=== PATIENT | female | born 1980 | race Caucasian/White ===

== ENCOUNTER 2016-08-30 12:57 | Emergency (ER) | payer SELFPAY ==
[~2016-08-30] VITALS: Ht 152.4 cm; Wt 77.0 kg
[2016-08-30] MEDS ORDERED: SILVADENE1 % EX (13:54)
[2016-08-30 14:12] VITALS: BP 139/84
== END 2016-08-30 14:12 | disposition home or self-care (01) | DRG 935 ==
LOC: ED 12:57
PROC: 2W2EX4Z Dressing of Right Hand using Bandage (ICD-10-PCS; principal; 2016-08-30)
PROC: 2W2FX4Z Dressing of Left Hand using Bandage (ICD-10-PCS; 2016-08-30)
DX: T23.262A Burn of second degree of back of left hand, initial encounter (principal); T23.261A Burn of second degree of back of right hand, initial encounter; X12.XXXA Contact with other hot fluids, initial encounter; Y93.89 Activity, other specified; Y92.009 Unspecified place in unspecified non-institutional (private) residence as the place of occurrence of the external cause

== ENCOUNTER 2018-11-03 22:11 | Emergency (ER) | payer SELFPAY ==
[~2018-11-03] VITALS: Ht 152.4 cm; Wt 79.5 kg
[~2018-11-03 22:11] MED LIST: SILVADENE1 % EX
[2018-11-03] MEDS ORDERED: CLARITIN10 M2 PO (22:44)
[2018-11-03 23:37] LABS: HEMATOCRIT 39.3 % (37.0-47.0); HEMOGLOBIN 12.9 g/dl (12.0-16.0); IMMATURE GRANULOCYTES 0.4 % (0.0-5.0); MEAN CELL VOLUME 84.2 fL CALC (80.0-100.0); MEAN CORPUSCULAR HGB 27.6 pG CALC (26.0-32.0); MEAN CORPUSCULAR HGB CONC 32.8 g/L CALC (32.0-36.0); NEUT# 6.92 thou/uL (2.00-7.15); RED BLOOD COUNT 4.67 mill/uL (4.20-5.60); RED CELL DISTRI WIDTH 14.1 % (11.5-15.5)
[2018-11-03 23:41] LABS: ALBUMIN 4.5 g/dL (3.2-5.0); ALKALINE PHOSPHATASE 100 u/l (38-126); ANION GAP 14 (6-22 (CALC)); BILIRUBIN, TOTAL 0.3 mg/dL (0.0-1.4); BUN 10 mg/dL (7-17); BUN/CREATININE RATIO 16 (12-20 (CALC)); CARBON DIOXIDE 24 mmol/l (22-30); CHLORIDE 105 mmol/l (95-108); CREATININE 0.6 mg/dL (0.5-1.0); GFR > 60 ML/MIN (>=60 (CALC)); GFR FOR AFR.AMER. > 60 ML/MIN (>=60 (CALC)); POTASSIUM 3.3 mmol/l (3.5-5.1); SODIUM 140 mmol/l (137-146); TOTAL PROTEIN 8.1 g/dL (6.3-8.2)
[2018-11-03 23:44] LABS: SGOT/AST 49 u/l (14-36)
[2018-11-03 23:49] LABS: URINE BILIRUBIN - DIPSTICK NEGATIVE (NEGATIVE); URINE BLOOD DIPSTICK NEGATIVE (NEGATIVE); URINE COLOR YELLOW; URINE GLUCOSE - DIPSTICK NEGATIVE (NEGATIVE); URINE KETONE NEGATIVE (NEGATIVE); URINE LEUK ESTERASE NEGATIVE (NEGATIVE); URINE NITRITE - DIPSTICK NEGATIVE (Negative); URINE PH 6.5 (4.5-8.0); URINE PROTEIN - DIPSTICK NEGATIVE (NEG-TRACE); URINE SPECIFIC GRAVITY <=1.005; URINE UROBILINOGEN - DIPSTICK 0.2 E.U./dL (0.2)
[2018-11-03 23:52] LABS: MYOGLOBIN 21 ng/mL (0 - 62)
[2018-11-03 23:55] LABS: BARBITURATES NEGATIVE (NEGATIVE); COCAINE NEGATIVE (NEGATIVE); METHADONE NEGATIVE (NEGATIVE); OXCYCODONE NEGATIVE (NEGATIVE); TETRAHYDROCANNABIONOL NEGATIVE (NEGATIVE); TRICYLIC ANTIDEPRESSANTS NEGATIVE (NEGATIVE)
[2018-11-04 02:04] LABS: TSH, 3RD GENERATION 3.59 uIU/mL (0.47 - 4.68)
[2018-11-04 02:58] VITALS: BP 112/70
== END 2018-11-04 03:02 | disposition home or self-care (01) | DRG 310 ==
LOC: ED 22:11
PROVIDERS: Emergency Medicine
DX: R00.2 Palpitations (principal); F41.9 Anxiety disorder, unspecified; R94.6 Abnormal results of thyroid function studies

== ENCOUNTER 2019-10-26 | Emergency (ER) | payer BC ==
[~2019-10-26] MED LIST changes: +CLARITIN10 M2 PO
[2019-10-26] MEDS ORDERED: BIRTH CONTROL (07:11)
[2019-10-26] MEDS ORDERED: OTC SINUS MED (07:12)
[2019-10-26 07:28] LABS: HEMATOCRIT 42.7 % (37.0-47.0); HEMOGLOBIN 14.1 g/dl (12.0-16.0); IMMATURE GRANULOCYTES 0.3 % (0.0-5.0); MEAN CORPUSCULAR HGB 28.7 pG CALC (26.0-32.0); NEUT# 7.98 thou/uL (2.00-7.15); RED BLOOD COUNT 4.91 mill/uL (4.20-5.60); RED CELL DISTRI WIDTH 13.1 % (11.5-15.5)
[2019-10-26 07:58] LABS: URINE BILIRUBIN - DIPSTICK NEGATIVE (NEGATIVE); URINE BLOOD DIPSTICK SMALL (NEGATIVE); URINE COLOR YELLOW; URINE GLUCOSE - DIPSTICK NEGATIVE (NEGATIVE); URINE KETONE NEGATIVE (NEGATIVE); URINE LEUK ESTERASE NEGATIVE (NEGATIVE); URINE NITRITE - DIPSTICK NEGATIVE (Negative); URINE PROTEIN - DIPSTICK NEGATIVE (NEG-TRACE); URINE UROBILINOGEN - DIPSTICK 0.2 E.U./dL (0.2)
[2019-10-26 08:26] LABS: URINE SQUAMOUS EPITHELIAL CELL FEW EPI/hpf (0-FEW); URINE WBC 0-2 WBC/hpf (0-5)
[2019-10-26 08:27] LABS: URINE MUCUS FEW hpf (NONE-FEW)
[2019-10-26 08:28] LABS: ALBUMIN 4.3 g/dL (3.2-5.0); ALKALINE PHOSPHATASE 84 u/l (38-126); ANION GAP 10 (6-22 (CALC)); BILIRUBIN, TOTAL 0.3 mg/dL (0.0-1.4); BUN 10 mg/dL (7-17); BUN/CREATININE RATIO 18 (12-20 (CALC)); CARBON DIOXIDE 25 mmol/l (22-30); CHLORIDE 106 mmol/l (95-108); CREATININE 0.6 mg/dL (0.5-1.0); GFR > 60 ML/MIN (>=60 (CALC)); GFR FOR AFR.AMER. > 60 ML/MIN (>=60 (CALC)); LIPASE 98 u/l (23-300); SGOT/AST 47 u/l (14-36); SODIUM 137 mmol/l (137-146)
[2019-10-26] MEDS ORDERED: HYOSCYAMINE0.125 M3 PO (09:38)
[2019-10-26] MEDS ORDERED: ONDANSETRON4 MG PO (09:38)
== END 2019-10-26 09:53 | disposition home or self-care (01) | DRG 392 ==
PROVIDERS: Family Medicine
DX: R10.31 Right lower quadrant pain (principal); R31.9 Hematuria, unspecified
CPT/HCPCS: Q9967

== ENCOUNTER 2022-10-12 14:17 | Emergency (ER) | payer BC ==
[~2022-10-12] VITALS: Ht 154.9 cm; Wt 86.0 kg
[2022-10-12] VITALS (7 sets, daily range): BP systolic 101–150; BP diastolic 57–85
[~2022-10-12 14:17] MED LIST changes: +BIRTH CONTROL; +HYOSCYAMINE0.125 M3 PO; +ONDANSETRON4 MG PO; +OTC SINUS MED
[2022-10-12] MEDS ORDERED: EPIPEN 2-P0.3 MG/0.3 IM (18:03)
[2022-10-12] MEDS ORDERED: PREDNISONE50 MG PO (18:03)
[2022-10-12] MEDS ORDERED: ALL DAY10 MG PO (18:03)
== END 2022-10-12 20:45 | disposition home or self-care (01) | DRG 916 ==
LOC: ED 14:17
DX: T78.01XA Anaphylactic reaction due to peanuts, initial encounter (principal)

== ENCOUNTER 2024-06-23 14:53 | Emergency (ER) | payer BC ==
[~2024-06-23] VITALS: Ht 154.9 cm; Wt 77.2 kg
[2024-06-23] VITALS (21 sets, daily range): BP systolic 118–151; BP diastolic 71–95
[~2024-06-23 14:53] MED LIST changes: +ALL DAY10 MG PO; +EPIPEN 2-P0.3 MG/0.3 IM; +MELOXICAM7.5 MG PO; +ORPHENADRINE100 MG PO; +PREDNISONE50 MG PO
[2024-06-23] MEDS ORDERED: EPINEPHrine HCL 1 MG/ML AMP IM STA (15:27)
[2024-06-23] MEDS ORDERED: DiphenhydrAMINE HCL 50 MG/ML SDV IV ONE (15:30)
[2024-06-23] MEDS ORDERED: FAMOTIDINE 10MG/ML 2ML SDV IV ONE (15:30)
[2024-06-23] MEDS ORDERED: methylPREDNISolone SODIUM SUCC 125 MG/2 ML SDV IV ONE (15:30)
[2024-06-23] MEDS ORDERED: LACTATED RINGER'S 1,000 ML IV ONE (15:30)
[2024-06-23] MEDS ORDERED: ZYRTEC10 MG PO (15:38)
[2024-06-23] MEDS ORDERED: ROSUVASTATIN CAL5 MG PO (15:39)
[2024-06-23] MEDS ORDERED: DICLOFENAC SODI75 M1 PO (15:40)
[2024-06-23 15:51] LABS: BASO% 0.2 % (0-3); EOS% 0.9 % (0-8); IMMATURE GRANULOCYTES 0.1 % (0.0-5.0); LYMPH% 26.3 % (15-41); MEAN CELL VOLUME 84.9 fL CALC (80.0-100.0); MEAN CORPUSCULAR HGB 27.8 pG CALC (26.0-32.0); MEAN CORPUSCULAR HGB CONC 32.7 g/dL CAL (32.0-36.0); MONO% 8.9 % (2-13); NEUT# 5.16 thou/uL (2.00-7.15); NEUT% 63.6 % (42-76); RED BLOOD COUNT 4.25 mill/uL (4.20-5.60); RED CELL DISTRI WIDTH 13.3 % (11.5-15.5)
[2024-06-23 15:54] LABS: HEMATOCRIT 36.1 % (37.0-47.0); HEMOGLOBIN 11.8 g/dl (12.0-16.0)
[2024-06-23 16:09] LABS: ALBUMIN 4.6 g/dL (3.2-5.0); BILIRUBIN, TOTAL 0.6 mg/dL (0.02-1.3); CREATININE 0.7 mg/dL (0.5-1.0); TOTAL PROTEIN 7.5 g/dL (6.3-8.2)
[2024-06-23] MEDS ORDERED: PEPCID20 MG PO (19:41)
[2024-06-23] MEDS ORDERED: PREDNISONE20 MG PO (19:41)
== END 2024-06-23 20:33 | disposition home or self-care (01) | DRG 607 ==
LOC: ED 14:53
PROVIDERS: Nurse Practitioner
DX: L23.6 Allergic contact dermatitis due to food in contact with the skin (principal); R22.0 Localized swelling, mass and lump, head; R06.02 Shortness of breath; Z91.018 Allergy to other foods
CPT/HCPCS: J1200

== ENCOUNTER 2024-07-12 10:42 | Emergency (ER) | payer BC ==
[~2024-07-12] VITALS: Ht 154.9 cm; Wt 77.1 kg
[~2024-07-12 10:42] MED LIST changes: +DICLOFENAC SODI75 M1 PO; +PEPCID20 MG PO; +PREDNISONE20 MG PO; +ROSUVASTATIN CAL5 MG PO; +ZYRTEC10 MG PO
[2024-07-12 10:46] VITALS: BP 130/104
[2024-07-12 10:49] VITALS: BP 134/74
[2024-07-12 10:56] VITALS: BP 150/76
[2024-07-12 11:00] VITALS: BP 146/80
[2024-07-12 11:30] VITALS: BP 135/79
[2024-07-12 11:49] VITALS: BP 135/79
== END 2024-07-12 11:51 | disposition home or self-care (01) | DRG 916 ==
LOC: ED 10:42
DX: T78.05XA Anaphylactic reaction due to tree nuts and seeds, initial encounter (principal)
CPT/HCPCS: J1100